=== PATIENT | male | born 1985 | race Two or more races ===

== ENCOUNTER 2021-09-13 20:34 | Inpatient (IN) | payer MEDICAID, OTHER ==
[~2021-09-13] VITALS: Ht 175.3 cm; Wt 89.8 kg
[2021-09-13 20:55] VITALS: BP 101/58
[2021-09-13 21:00] VITALS: BP 104/58
--- NOTE | 2021-09-13 21:00 | NUR ---
electrician helper notes Received Pt [facility]. [facility] is alert and orientedX4. On room air. No SOB. No S/S of distress noted. VS is stable. IV site at R forearm # 20 is clean, intact and SL. Skin assessment is done and performed. Skin is intact. Pt is complaining of pain on rectal site. Rectal picture is taken and placed at Pt's chart. Noted no bleeding at rectal site. [place] Pt to the room and the use of call light. Pt verbalized understanding. safety precautions is maintained. Bed at low position, brakes locked, bed alarm is on, urinal at the bedside, side rails upX2, hob elevated and call light is within limit. Will continue to monitor.
[2021-09-13] MEDS ORDERED: IV NS 0.9% 1,000 ML IV PRN (22:00)
[2021-09-13] MEDS ORDERED: MAGNESIUM HYDROXIDE 30 ML UDC PO PRN (22:00)
[2021-09-13] MEDS ORDERED: CIPROFLOXACIN IV RTU 200 MG in PREMIX 1 EA IV SCH (22:00)
[2021-09-13] MEDS ORDERED: ACETAMINOPHEN 325 MG TABLET PO PRN (22:00)
[2021-09-13] MEDS ORDERED: ONDANSETRON HCL/PF 4 MG/2 ML VIAL IVP PRN (22:00)
[2021-09-13] MEDS ORDERED: MAG HYDROX/AL HYDROX/SIMETH 30 ML UDC PO PRN (22:00)
[2021-09-13] MEDS ORDERED: ZOLPIDEM TARTRATE 5 MG TABLET PO PRN (22:00)
[2021-09-13] MEDS ORDERED: Z GUARD REMEDY 4 OZ OINT TP PRN (22:00)
--- NOTE | 2021-09-13 22:00 | NUR ---
RN notes Given snacks to Pt per Pt's request.
[2021-09-13] MEDS: HYDROCODONE/APAP 5/325MG TABLET PO PRN (23:18)
--- NOTE | 2021-09-13 23:22 | NUR ---
RN notes Pt is complaining of pain on rectal 10/10 on pain scale. Administered norco5/1 tab/po/prn for pain. VS is stable. Will continue to monitor.
[2021-09-13] MEDS ORDERED: CIPROFLOXACIN IV RTU 200 ML IV ONE (23:38)
[2021-09-13] MEDS ORDERED: METRONIDAZOLE 500MG/ NS 100ML 100 ML IV ONE (23:39)
[2021-09-13] MEDS: METRONIDAZOLE 500MG/ NS 100ML 500 MG in PREMIX 1 EA IV SCH (23:51)
--- NOTE | 2021-09-13 23:51 | NUR ---
RN notes Received flagyl from charge nurse. Unable to scan meds. manually entered.
--- NOTE | 2021-09-13 23:59 | NUR ---
RN notes Dr. Sweeney at the bedside.
--- NOTE | 2021-09-14 00:04 | NUR ---
RN notes Received order from Dr. Sweeney for morphine 1 mg/Q4hr/IV/prn. Ordered carry out.
[2021-09-14] MEDS: MORPHINE SULFATE INJ 2 MG/ML DISP.SYRIN IV PRN ×3 (01:03→20:22)
--- NOTE | 2021-09-14 01:21 | NUR ---
RN notes Pt is complaining of pain on rectal 10/10 on pain scale and requesting pain meds. administered morphine 1mg/iv push/prn as ordered for pain. VS is stable. will continue to monitor.
[2021-09-14] MEDS: HYDROCODONE/APAP 5/325MG TABLET PO PRN (04:51)
[2021-09-14 06:33] LABS: BASOPHILS % (AUTO) 0.1 % (0.0-2.0); EOSINOPHILS % (AUTO) 0.4 % (0.0-6.0); HEMATOCRIT 39 % (39-51); HEMOGLOBIN 13.4 g/dL (13.5-17.5); LYMPHOCYTES % (AUTO) 9.4 % (20.0-44.0); MEAN CORPUSCULAR HGB CONC 34 g/dl (31.0-36.0); MEAN CORPUSCULAR VOLUME 84 fL (80-96); MONOCYTES # (AUTO) 1.2 K/uL (0.1-1.30); MONOCYTES % (AUTO) 10.9 % (2.0-12.0); NEUTROPHILS # (AUTO) 8.6 K/uL (1.8-8.9); NEUTROPHILS % (AUTO) 79.2 % (43.0-81.0); PLATELET COUNT (AUTO) 215 K/uL (150-450); RED BLOOD CELL COUNT(AUTO) 4.67 MIL/uL (4.5-6.0); WHITE BLOOD COUNT (AUTO) 10.9 K/uL (4.3-11.0)
--- NOTE | 2021-09-14 07:00 | NUR ---
RN closing notes Pt is resting in bed comfortably. Pt is alert and orientedX4. on room air. No SOB. No S/S of distress noted. VS is stable. IV site at R forearm # 20 is clean, intact and infusing well NS@ 75 ml/hr. Routine meds were given as ordered. Kept Pt clean, dry and comfortable. Safety precautions is maintained. Bed at low position, brakes locked, side rails upX2, urinal at the bedside and bed alarm is on and call light is within reach. Will continue to monitor.
--- NOTE | 2021-09-14 07:04 | NUR ---
RN notes Called pharmacy regarding flagyl. Pharmacy will deliver flagyl abx.
[2021-09-14 07:10] LABS: CALCIUM, SERUM 8.8 mg/dL (8.5-10.1); CREATININE 1.3 mg/dL (0.6-1.3); PHOSPHORUS 3.6 mg/dL (2.5-4.9); POTASSIUM 3.3 mmol/L (3.5-5.1)
[2021-09-14 07:19] LABS: MAGNESIUM 1.7 mg/dL (1.8-2.4)
[2021-09-14] MEDS: METRONIDAZOLE 500MG/ NS 100ML 500 MG in PREMIX 1 EA IV SCH ×3 (07:20→22:02)
[2021-09-14] MEDS ORDERED: MULT-447 PO (08:11)
[2021-09-14 08:22] LABS: THYROID STIMULATING HORMONE 0.666 uIU/mL (0.358-3.74)
--- NOTE | 2021-09-14 09:10 | NUR ---
MS RN OPENING NOTES RECEIVED PATIENT ON BED AWAKE AND A/O X4. ON ROOM AIR TOLERATING WELL. NO SOB NOTED. NOT IN DISTRESS. WITH COMPLAINTS OF PAIN AT THE SACRAL AREA AT THE SCALE OF 8/10. COMFORT MEASURES PROVIDED SUCH COLD COMPRESS AND WILL GIVE PAIN MEDICATION. WITH IV ACCESS AT RIGHT AC G20 WITH IVF NS AT 75ML/HR INFUSING WELL. SAFETY MEASURES IN PLACED. CALL LIGHT WITHIN REACH. BED ON LOWEST LOCKED POSITION, SIDE RAILS UP X2. WILL CONTINUE TO MONITOR.
[2021-09-14] MEDS: PANTOPRAZOLE 40 MG TABLET.DR PO SCH (09:16)
[2021-09-14] MEDS: CIPROFLOXACIN IV RTU 400 MG in PREMIX 1 EA IV SCH ×2 (09:17→21:18)
[2021-09-14] MEDS ORDERED: MAGNESIUM OXIDE 400 MG TABLET PO ONE (12:00)
[2021-09-14] MEDS ORDERED: POTASSIUM CHLORIDE 20 MEQ TAB.PRT.SR PO SCH (12:00)
--- NOTE | 2021-09-14 18:00 | NUR ---
RN NOTE DR. DICKEY CALLED AND ORDERED PATIENT FOR A PROCEDURE TOMORROW AT 8AM OF EXAMINATION OF ANAL CANAL UNDER ANESTHESIA POSSIBLE I & D OF PERIRECTAL ABSCESS AND POSSIBLE INTERNAL SPHINCTEROTOMY AND OBTAIN CONSENT.
--- NOTE | 2021-09-14 19:20 | NUR ---
MS RN CLOSING NOTES PATIENT ON BED AWAKE AND A/O X4. ON ROOM AIR TOLERATING WELL. NO SOB NOTED. NOT IN DISTRESS. WITH COMPLAINTS OF PAIN AT THE SACRAL AREA AT THE SCALE OF 8/10. COMFORT MEASURES PROVIDED SUCH COLD COMPRESS. WITH IV ACCESS AT LEFT FOREARM G20 WITH IVF NS AT 75ML/HR INFUSING WELL. DUE MEDS GIVEN. SAFETY MEASURES IN PLACED. CALL LIGHT WITHIN REACH. BED ON LOWEST LOCKED POSITION, SIDE RAILS UP X2. WILL ENDORSE TO NEXT SHIFT FOR GRACE.
--- NOTE | 2021-09-14 19:28 | NUR ---
RN Opening notes Pt is resting in bed comfortably. Pt is alert and orientedX4. on room air. No SOB. No S/S of distress noted. VS is stable. IV site at R forearm # 20 is clean, intact and infusing well NS@ 75 ml/hr. Kept Pt clean, dry and comfortable. Safety precautions is maintained. Bed at low position, brakes locked, side rails upX2, urinal at the bedside and bed alarm is on and call light is within reach. Will continue to monitor.
[2021-09-14] MEDS ORDERED: ANESTHESIA TRAY IN PYXIS 1 EA TRAY MC ONE (19:42)
[2021-09-14 20:01] VITALS: BP 132/81
--- NOTE | 2021-09-14 20:25 | NUR ---
MS RN NOTES pt reporting pain 9/10 on a numeric pain scale prn morphine given and tolerated well. will continue to monitor.
[2021-09-15] MEDS: MORPHINE SULFATE INJ 2 MG/ML DISP.SYRIN IV PRN (03:53)
--- NOTE | 2021-09-15 03:57 | NUR ---
MS RN NOTES PRN MORPHINE GIVEN FOR 01/08 PAIN TOLERATED WELL. WILL CONTINUE TO MONITOR. ALL NEEDS MET AT THIS TIME.
[2021-09-15] MEDS: METRONIDAZOLE 500MG/ NS 100ML 500 MG in PREMIX 1 EA IV SCH ×2 (05:11→13:54)
--- NOTE | 2021-09-15 06:44 | NUR ---
RN Closing notes Pt is resting in bed comfortably. Pt is alert and orientedX4. on room air. No SOB. No S/S of distress noted. VS is stable. IV site at R forearm # 20 is clean, intact and infusing well NS@ 75 ml/hr. Kept Pt clean, dry and comfortable. Safety precautions is maintained. Bed at low position, brakes locked, side rails upX2, urinal at the bedside and bed alarm is on and call light is within reach. pt npo since midnight for procedure this morning. pain management provided as needed.needs anticipated and met at all times. all due meds given as ordered. will endorse care to day shift nurse.
[2021-09-15] MEDS ORDERED: FENTANYL PF 250MCG/5ML AMPUL ONE (06:58)
[2021-09-15] MEDS ORDERED: MIDAZOLAM HCL 2 MG/2ML VIAL ONE (06:59)
[2021-09-15] MEDS ORDERED: FAMOTIDINE/PF INJ 20 MG/2 ML VIAL IV ONE (06:59)
[2021-09-15] MEDS ORDERED: SUCCINYLCHOLINE CHLORIDE 20 MG/ML VIAL ONE (06:59)
[2021-09-15 07:14] LABS: CALCIUM, SERUM 8.7 mg/dL (8.5-10.1); CREATININE 1.2 mg/dL (0.6-1.3); MAGNESIUM 1.9 mg/dL (1.8-2.4); POTASSIUM 3.7 mmol/L (3.5-5.1)
[2021-09-15 07:22] LABS: BASOPHILS % (AUTO) 0.2 % (0.0-2.0); EOSINOPHILS % (AUTO) 0.1 % (0.0-6.0); HEMATOCRIT 40 % (39-51); HEMOGLOBIN 13.6 g/dL (13.5-17.5); LYMPHOCYTES # (AUTO) 1.5 K/uL (0.8-4.8); LYMPHOCYTES % (AUTO) 11.4 % (20.0-44.0); MEAN CORPUSCULAR HGB CONC 34 g/dl (31.0-36.0); MEAN CORPUSCULAR VOLUME 84 fL (80-96); MONOCYTES # (AUTO) 1.5 K/uL (0.1-1.30); MONOCYTES % (AUTO) 11.8 % (2.0-12.0); NEUTROPHILS # (AUTO) 9.9 K/uL (1.8-8.9); NEUTROPHILS % (AUTO) 76.5 % (43.0-81.0); PLATELET COUNT (AUTO) 227 K/uL (150-450); WHITE BLOOD COUNT (AUTO) 12.9 K/uL (4.3-11.0)
[2021-09-15] MEDS: PANTOPRAZOLE 40 MG TABLET.DR PO SCH (07:30)
--- NOTE | 2021-09-15 07:30 | NUR ---
MS RN OPENING NOTES RECEIVED PATIENT ON BED AWAKE AND A/O X4. ON ROOM AIR TOLERATING WELL. NO SOB NOTED. NOT IN DISTRESS. WITH COMPLAINTS OF PAIN AT THE SACRAL AREA AT THE SCALE OF 6/10. COMFORT MEASURES PROVIDED SUCH COLD COMPRESS AND WILL GIVE PAIN MEDICATION. WITH IV ACCESS AT RIGHT AC G20 WITH IVF NS AT 75ML/HR INFUSING WELL. AWAITING FOR OR PROCEDURE. NPO STATUS MAINTAINED. WITH CONSENT SIGNED IN THE CHART. SAFETY MEASURES IN PLACED. CALL LIGHT WITHIN REACH. BED ON LOWEST LOCKED POSITION, SIDE RAILS UP X2. WILL CONTINUE TO MONITOR.
--- NOTE | 2021-09-15 07:35 | NUR ---
RN NOTE PATIENT WAS PICKED UP BY OR PERSONNEL FOR OR PROCEDURE. WITH STABLE VITAL SIGNS.
[2021-09-15 08:00] VITALS: BP 134/84
[2021-09-15] MEDS ORDERED: BUPIVACAINE 0.5 % PF 150 MG/30 ML VIAL ONE (08:09)
[2021-09-15] MEDS ORDERED: LIDOCAINE 1%-EPI 1:100,000 20 ML VIAL ONE (08:10)
[2021-09-15] MEDS ORDERED: IV LR 1000 ML 1,000 ML IV PRN (10:00)
[2021-09-15] MEDS: CIPROFLOXACIN IV RTU 400 MG in PREMIX 1 EA IV SCH (11:16)
[2021-09-15] MEDS ORDERED: CIPR500T5 PO (15:23)
[2021-09-15 16:00] VITALS: BP 111/72
--- NOTE | 2021-09-15 17:40 | NUR ---
MS MERCHANDISE ADJUSTMENT CLERK NOTES PATIENT WAS SEEN BY DR. KAT AND ORDERED PATIENT FOR DISCHARGE TO HOME. DISCHARGE INSTRUCTION AND EDUCATION PROVIDED TO PATIENT AND EXPLAINED MEDICATIONS AND PRESCRIPTIONS. PATIENT VERBALIZED UNDERSTANDING. DISCHARGE FORM AND BELONGINGS LIST FORM WAS SIGNED BY PATIENT. ALL BELONGINGS ACCOUNTED FOR. NAME WRIST BAND AND IV LINE REMOVED. ACCOMPANIED PATIENT TO THE LOBBY VIA WHEELCHAIR IN STABLE CONDITION AND WAS PICKED UP BY [employer] VIA PRIVATE CAR. MD AND CHARGE NURSE ARE AWARE OF THE DISCHARGE.
== END 2021-09-15 17:45 | disposition home or self-care (01) | DRG 226 ==
LOC: TELE 20:34 → MED 21:49
PROVIDERS: ADMIT Registered Nurse; ATTEND Nurse Practitioner Acute Care
PROC: 0D9R0ZZ Drainage of Anal Sphincter, Open Approach (ICD-10-PCS; principal; 2021-09-15)
DX: K61.0 Anal abscess (principal); F10.10 Alcohol abuse, uncomplicated; K64.9 Unspecified hemorrhoids; Z87.891 Personal history of nicotine dependence; Y90.9 Presence of alcohol in blood, level not specified
CPT/HCPCS: 36415; 80048-TC; 80061-TC; 82962-TC; 83735-TC; 84100-TC; 84443-TC; 85025-TC; 85730-TC; 87040-TC; 87070-TC; 87075-TC; 87081-TC; 87186-TC; A4216; A6253; G0378; J0330; J0690; J0744; J1885; J2250; J2270; J2405; J2704; J2765; J3010; J3490; J7030; J7050; J7120